=== PATIENT | female | born 1975 | race Caucasian/White ===

== ENCOUNTER 2018-03-01 18:51 | Emergency (ER) | payer SELFPAY ==
[2018-03-01] MEDS ORDERED: SUBLIMAZE IV ONE ×2 (19:14→19:58)
[2018-03-01] MEDS ORDERED: ZOFRAN IV ONE (19:14)
[2018-03-01] MEDS ORDERED: LACTATED RINGERS 1,000 ML IV ONE (19:15)
[2018-03-01] MEDS ORDERED: BOOSTRIX IM ONE (19:15)
[2018-03-01] MEDS ORDERED: THERMAZENE 50 GRAM TP ONE (19:22)
[2018-03-01] MEDS ORDERED: ANTIBIOTIC OINT TP ONE (19:40)
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
[2018-03-01] MEDS ORDERED: TORADOL IV ONE (19:58)
[2018-03-01 22:15] VITALS: BP 166/98
== END 2018-03-01 20:48 | disposition home or self-care (01) ==
LOC: ED 18:51
DX: T20.27XA Burn of second degree of neck, initial encounter (principal); T22.251A Burn of second degree of right shoulder, initial encounter; T20.211A Burn of second degree of right ear [any part, except ear drum], initial encounter; E11.9 Type 2 diabetes mellitus without complications; F17.200 Nicotine dependence, unspecified, uncomplicated; X17.XXXA Contact with hot engines, machinery and tools, initial encounter; Y93.89 Activity, other specified; Y92.89 Other specified places as the place of occurrence of the external cause; Y99.8 Other external cause status
CPT/HCPCS: 16025; 82962; 90471; 90715; 96374; 96375; 96376; 99283; J1885; J2405; J3010; J7120

== ENCOUNTER 2018-04-08 00:01 | Emergency (ER) | payer SELFPAY ==
[2018-04-08 02:55] LABS: Basophils # (Auto) 0.1 K/mm3 (0.0-0.1); Basophils % (Auto) 0.9 % (0.0-1.8); Eosinophils # (Auto) 0.5 K/mm3 (0.0-0.4); Eosinophils % (Auto) 4.6 % (0.0-4.3); Hematocrit 48.6 % (30.3-42.9); Hemoglobin 16.6 gm/dl (10.1-14.3); Lymphocytes # (Auto) 3.7 K/mm3 (1.2-5.4); Lymphocytes % (Auto) 37.6 % (13.4-35.0); Mean Corpuscular HGB Conc 34 % (30-34); Mean Corpuscular Hemoglobin 31 pg (28-32); Mean Corpuscular Volume 90 fl (79-97); Monocytes # (Auto) 0.7 K/mm3 (0.0-0.8); Monocytes % (Auto) 6.9 % (0.0-7.3); Platelet Count 185 K/mm3 (140-440); Red Blood Count 5.42 M/mm3 (3.65-5.03); Red Cell Distribution Width 13.8 % (13.2-15.2)
[2018-04-08 03:16] LABS: Alanine Aminotransferase 32 units/L (7-56); Albumin 3.6 g/dL (3.9-5); BUN/Creatinine Ratio 30; Blood Urea Nitrogen 18 mg/dL (7-17); Calcium 8.9 mg/dL (8.4-10.2); Hemolysis Index 4
--- NOTE | 2018-04-08 04:11 | Cat Scan Report ---
FINAL REPORT EXAM: CT HEAD/BRAIN WO CON HISTORY: Right Head Pressure TECHNIQUE: Routine axial imaging was obtained of the brain without IV contrast. FINDINGS: The ventricular system is appropriate in size and is symmetric. There is no evidence of acute stroke or hemorrhage. There are no extra-axial fluid collections. The visualized sinuses are clear. The mastoid air cells are well pneumatized. The calvarium appears intact. IMPRESSION: Within normal limits.
[2018-04-08 06:37] VITALS: BP 128/68
--- NOTE | 2018-04-08 09:30 | Emergency Department Report ---
Blank Doc - Documentation Documentation: I went to see this patient and patient was no longer in the room. Laboratory studies have been reviewed. Patient is left without being seen.
== END 2018-04-08 10:00 | disposition left against medical advice (07) ==
LOC: ED 00:01
DX: R20.0 Anesthesia of skin (principal); Z53.21 Procedure and treatment not carried out due to patient leaving prior to being seen by health care provider
CPT/HCPCS: 36415; 70450; 80053; 84703; 85025; 93005; 93010

== ENCOUNTER 2020-03-18 03:15 | Inpatient (IN) | payer OTHER, SELFPAY ==
--- NOTE | 2020-03-18 03:41 | Emergency Department Report ---
ED CPR HPI - General Chief Complaint: Cardiac Arrest/CPR Stated Complaint: CARDIAC ARREST Time Seen by Provider: 03/18/20 03:24 Source: EMS Mode of arrival: Stretcher Limitations: Physical Limitation - History of Present Illness Initial Comments: 44-year-old female, unknown medical history, presents to the ED via EMS. Medics states they were called out for shortness of breath, however upon arrival, patient was unresponsive, pulseless, and apneic. ACLS was initiated. Patient was PEA on the monitor initially. Patient was given a total of epinephrine x2 and defibrillation x1. Regained pulse just prior to ED arrival. Complaint: found unresponsive Place: home Bystander CPR Performed: No Shock Advised: Yes Number of Shocks Delivered: 1 Initial Findings in the Field: unresponsive, no respirations, no pulse, PEA ROSC in the Field: Yes Associated Symptoms: shortness of breath Treatments Prior to Arrival: intubation, chest compressions, defribrillated shocks # (1), epinephrine mgs # (2) - Related Data Previous Rx's Medication Instructions Recorded Last Taken Type Bacitracin 1 applic .ROUTE BID #3.5 oint...g. 03/01/18 Unknown Rx Ibuprofen [Motrin 800 MG tab] 800 mg PO Q8HR PRN #20 tablet 03/01/18 Unknown Rx Silver Sulfadiazine [Silvadene] 1 applic TP BID #1000 cream..g. 03/01/18 Unknown Rx oxyCODONE /ACETAMINOPHEN [Percocet 1 - 2 tab PO Q6HR PRN #20 tablet 03/01/18 Unknown Rx 5/325] Allergies Allergy/AdvReac Type Severity Reaction Status Date / Time No Known Allergies Allergy Verified 03/01/18 19:35 ED Review of Systems ROS: Stated complaint: CARDIAC ARREST Other details as noted in HPI Comment: Unobtainable due to pts medical conditions ED Past Medical Hx - Past Medical History Previous Medical History?: Yes Hx Hypertension: Yes Hx CVA: Yes Hx Diabetes: Yes - Surgical History Past Surgical History?: Yes Hx Cholecystectomy: Yes Hx Appendectomy: Yes - Social History Smoking Status: Current Every Day Smoker Substance Use Type: None - Medications Home Medications: Home Medications Medication Instructions Recorded Confirmed Last Taken Type Bacitracin 1 applic .ROUTE BID #3.5 oint...g. 03/01/18 Unknown Rx Ibuprofen [Motrin 800 MG tab] 800 mg PO Q8HR PRN #20 tablet 03/01/18 Unknown Rx Silver Sulfadiazine [Silvadene] 1 applic TP BID #1000 cream..g. 03/01/18 Unknown Rx oxyCODONE /ACETAMINOPHEN [Percocet 1 - 2 tab PO Q6HR PRN #20 tablet 03/01/18 Unknown Rx 5/325] ED Physical Exam - General Limitations: Physical Limitation - Head Head exam: Present: atraumatic, normocephalic - Eye Eye exam: Present: normal appearance - ENT ENT exam: Present: other (ET tube in place) - Neck Neck exam: Present: normal inspection - Respiratory Respiratory exam: Present: rhonchi - Cardiovascular Cardiovascular Exam: Present: normal rhythm, tachycardia - GI/Abdominal GI/Abdominal exam: Present: soft. Absent: distended - Extremities Exam Extremities exam: Present: normal inspection. Absent: pedal edema - Neurological Exam Neurological exam: Present: other (GCS=3) - Skin Skin exam: Present: warm, dry, intact, normal color ED Course Vital Signs 03/18/20 03/18/20 03/18/20 03:18 03:30 03:53 Temperature Pulse Rate 152 H 142 H 137 H Respiratory 23 22 25 H Rate Blood Pressure 160/114 O2 Sat by Pulse 66 L 100 93 Oximetry 03/18/20 03/18/20 03/18/20 04:00 04:16 04:18 Temperature Pulse Rate 135 H 128 H 125 H Respiratory 27 H 29 H Rate Blood Pressure 129/96 148/106 129/96 O2 Sat by Pulse 87 95 96 Oximetry 03/18/20 03/18/20 03/18/20 04:27 04:30 04:46 Temperature 97.0 F L Pulse Rate 122 H 120 H Respiratory 32 H 34 H Rate Blood Pressure 129/96 129/96 O2 Sat by Pulse 96 98 Oximetry 03/18/20 03/18/20 03/18/20 05:00 05:46 06:00 Temperature Pulse Rate 117 H Respiratory 36 H 36 H Rate Blood Pressure 150/70 150/70 150/70 O2 Sat by Pulse 99 87 93 Oximetry 03/18/20 03/18/20 03/18/20 06:16 06:30 06:46 Temperature Pulse Rate Respiratory 40 H 41 H 36 H Rate Blood Pressure 150/70 173/102 173/102 O2 Sat by Pulse 94 94 98 Oximetry 03/18/20 03/18/20 03/18/20 07:00 07:16 07:30 Temperature Pulse Rate Respiratory 34 H 39 H 41 H Rate Blood Pressure 173/102 173/102 173/102 O2 Sat by Pulse 92 94 96 Oximetry 03/18/20 03/18/20 03/18/20 07:46 08:00 08:15 Temperature Pulse Rate Respiratory 43 H 38 H 32 H Rate Blood Pressure 155/20 155/20 O2 Sat by Pulse 98 96 95 Oximetry 03/18/20 03/18/20 03/18/20 08:20 08:31 08:45 Temperature Pulse Rate 128 H 135 H 131 H Respiratory 29 H 29 H Rate Blood Pressure 130/84 155/20 155/20 O2 Sat by Pulse 93 91 90 Oximetry 03/18/20 03/18/20 03/18/20 09:01 10:01 10:21 Temperature Pulse Rate 130 H 130 H 130 H Respiratory 30 H 33 H 33 H Rate Blood Pressure 130/84 130/84 130/84 O2 Sat by Pulse 90 92 92 Oximetry 03/18/20 03/18/20 03/18/20 10:30 10:41 10:51 Temperature Pulse Rate 132 H 131 H 130 H Respiratory 33 H 34 H 33 H Rate Blood Pressure 133/49 133/49 133/49 O2 Sat by Pulse 94 94 95 Oximetry 03/18/20 03/18/20 11:52 11:58 Temperature Pulse Rate 133 H 130 H Respiratory 36 H Rate Blood Pressure O2 Sat by Pulse 199 H Oximetry - Reevaluation(s) Reevaluation #1: 03/18/20 03:25 Sats initially in the 70s. Absence of breath sounds on the left. Pt w/ right main stem intubation in the field, so tube withdrawn until equal breath sounds bilaterally. CXR pending. Reevaluation #2: 03/18/20 05:58 Spoke w/ pt's father over the phone via clinical manager (Osmin Yu [phone]). States pt had a cardiac cath 10 days ago at [facility] for blocked arteries and possibly had stent placed. Unknown if pt had COVID test or symptoms. - Consultations Consultation #1: 03/18/20 07:58 Spoke w/ Dr Angel. Recommends lovenox for now and will attempt to obtain records from [facility]. ED Medical Decision Making - Lab Data Result diagrams: 03/18/20 03:35 03/18/20 14:09 - EKG Data -: EKG Interpreted by Me EKG shows normal: sinus rhythm Rate: tachycardia (rate 148) - Radiology Data Radiology results: report reviewed, image reviewed - Medical Decision Making 44 yo F s/p cardiac arrest at home. Initial EMS call for shortness of breath. Pt was intubated in the field, right main stem intubation by EMS. ET tube was readjusted once she arrived in the ED. Upon ED arrival pt had regained pulses. BP stable, pt tachycardic, afebrile. COVID status unknown. Father states pt had cardiac cath 10 days ago. Unknown if stent was placed at that time. Pt currently w/ elevated WBCs, elevated ymphocytes, bilateral pneumonia and right pleural effusion on CT. Sepsis protocol initiated, cultures drawn, IV fluids and abx given. Renal function ok at this time. Troponin elevated 0.4. EKG shows sinus tach w/ diffuse depressions. Lovenox given. No PE on CT. Initial lactic acid was 11, repeat improved to 6. Cardiology has been consulted, spoke w/ Dr Angel. ID consult and COVID testing has been ordered. Intensive care consult has also been ordered. Pt will be admitted to hospitalist for further management. - Differential Diagnosis PE, CHF, COVID, arrythmia, ACS Critical Care Time: Yes Critical care time in (mins) excluding proc time.: 35 Critical care attestation.: If time is entered above; I have spent that time in minutes in the direct care of this critically ill patient, excluding procedure time. Critical Care Time: 35 min ED Disposition Clinical Impression: Cardiac arrest, Pneumonia, Sepsis, Suspected 2019 novel coronavirus infection, Pleural effusion, NSTEMI (non-ST elevated myocardial infarction) Disposition: DC-09 OP ADMIT IP TO THIS HOSP Is pt being admited?: Yes Condition: Undetermined Time of Disposition: 07:39
[2020-03-18 04:03] LABS: Mean Corpuscular HGB Conc 31 % (30-34); Mean Corpuscular Volume 97 fl (79-97); Platelet Count 344 K/mm3 (140-440); Red Blood Count 5.09 M/mm3 (3.65-5.03); Red Cell Distribution Width 14.3 % (13.2-15.2)
--- NOTE | 2020-03-18 04:08 | XRay Report ---
CHEST 1 VIEW 03/18/2020 3:24 AM INDICATION / CLINICAL INFORMATION: cardiac arrest, intubated, sob. COMPARISON: None available. FINDINGS: SUPPORT DEVICES: ET tube has tip 6 cm above daria. NG tube courses below body of stomach. HEART / MEDIASTINUM: No significant abnormality. LUNGS / PLEURA: Dense airspace consolidation throughout the right mid to lower lung field. Multifocal mild patchy parenchymal disease left lung characteristic for bronchopneumonia. No pneumothorax. ADDITIONAL FINDINGS: No significant additional findings. IMPRESSION: 1. Bilateral bronchopneumonia, right greater than left. Signer Name: John Gan MD Signed: 03/18/2020 4:04 AM Workstation Name: [id number]
[2020-03-18] MEDS ORDERED: CEFEPIME/NS 1 GM/100 ML 1 GM/100 ML BAG IV ONE (04:11)
[2020-03-18 04:15] LABS: Hematocrit 49.3 % (30.3-42.9); Hemoglobin 15.4 gm/dl (10.1-14.3); INR 1.31 (0.87-1.13)
[2020-03-18 04:16] LABS: Partial Thromboplastin Time 40.2 Sec. (24.2-36.6)
[2020-03-18 04:21] LABS: Alanine Aminotransferase 75 units/L (7-56); Albumin 2.8 g/dL (3.9-5); BUN/Creatinine Ratio 24; Blood Urea Nitrogen 26 mg/dL (7-17); Calcium 8.9 mg/dL (8.4-10.2); Hemolysis Index 21
[2020-03-18 04:22] LABS: Bilirubin,Direct < 0.2 mg/dL (0-0.2)
[2020-03-18] MEDS ORDERED: SODIUM CHLORIDE 0.9% 1000 ML IV SOLN IV ONE (04:47)
[2020-03-18] MEDS ORDERED: VANCOMYCIN 1,750 MG in SODIUM CHLORIDE 0.9% 500 ML 500 ML IV ONE (05:00)
--- NOTE | 2020-03-18 06:02 | Cat Scan Report ---
CTA CHEST WITH IV CONTRAST INDICATION: MAIN: cardiac arrest, sob, 100cc omn i350. TECHNIQUE: Axial CT images were obtained through the chest after injection of 100 cc Omnipaque 350 IV contrast. 3 plane MIP reconstructions were produced. All CT scans at this location are performed using CT dose reduction for ALARA by means of automated exposure control. COMPARISON: None available. FINDINGS: PULMONARY ARTERIES: No pulmonary emboli. THORACIC AORTA: No acute abnormality. HEART: Normal. CORONARY ARTERIES: No significant calcification. PLEURA: Moderate right pleural effusion No pneumothorax. LYMPH NODES: No significant adenopathy. LUNGS: Dense airspace consolidation both lower lobes characteristic for bronchopneumonia with patchy infiltrate seen within both upper lobes. ADDITIONAL FINDINGS: Endotracheal and nasogastric tubes are noted in expected position UPPER ABDOMEN: No acute findings. Gallbladder surgically absent. SKELETAL STRUCTURES: No significant osseous abnormality. IMPRESSION: 1. No CT evidence for pulmonary embolism. 2. Bilateral lower lobe bronchopneumonia and moderate right pleural effusion. Signer Name: John Gan MD Signed: 03/18/2020 5:58 AM Workstation Name: [id number]
--- NOTE | 2020-03-18 06:03 | Cat Scan Report ---
CT HEAD WITHOUT CONTRAST INDICATION / CLINICAL INFORMATION: MAIN: cardiac arrest, pt intubated, best possible images 2nd attempt. TECHNIQUE: All CT scans at this location are performed using CT dose reduction for ALARA by means of automated e xposure control. COMPARISON: None available. FINDINGS: HEMORRHAGE: None. EXTRA-AXIAL SPACES: Normal in size and morphology for the patient's age. VENTRICULAR SYSTEM: Normal in size and morphology for the patient's age. CEREBRAL PARENCHYMA: No significant abnormality. No acute territorial infarct. MIDLINE SHIFT OR HERNIATION: None. CEREBELLUM / BRAINSTEM: No significant abnormality. ORBITS: Normal as visualized. SOFT TISSUES of HEAD: No significant abnormality. CALVARIUM: No significant abnormality. PARANASAL SINUSES / MASTOID AIR CELLS: Normal as visualized. ADDITIONAL FINDINGS: None. IMPRESSION: 1. No acute intracranial abnormality. Signer Name: John Gan MD Signed: 03/18/2020 5:59 AM Workstation Name: [id number]
[2020-03-18 06:39] LABS: ABG Base Excess -8.7 mmol/L (-2.0-3.0); ABG HCO3 17.6 mmol/L (20.0-26.0); ABG Methemoglobin 0.2 % (0.0-1.5); ABG Oxygen Saturation 92.2 % (95.0-99.0); ABG PCO2 39.4 mm Hg; ABG PH 7.269 pH Units (7.350-7.450); ABG PO2 63.3 mm Hg (80.0-90.0)
[2020-03-18 06:39] LABS: Anisocytosis 1+; Band Neutrophils # (Manual) 0.1 K/mm3; Basophils % (Manual) 0 % (0.0-1.8); Eosinophils % (Manual) 5.5 % (0.0-4.3); Monocytes % (Manual) 5.5 % (0.0-7.3); Total Cells Counted 200
[2020-03-18 06:41] LABS: Platelet Estimate Consistent w Auto
[2020-03-18] MEDS ORDERED: HEPARIN 10,000 UNITS/10 ML VIAL IV ONE (07:40)
[2020-03-18] MEDS ORDERED: ENOXAPARIN 100 MG/1 ML INJ SUB-Q ONE (07:58)
[2020-03-18 08:00] LABS: C-Reactive Protein 0.6 mg/dL (0.00-1.30)
[2020-03-18] MEDS ORDERED: INSULIN REGULAR, HUMAN 100 UNITS/1 ML SUB-Q SCH (08:00)
[2020-03-18] MEDS ORDERED: HEPARIN/ 0.45% NACL DRIP 25,000 UNIT/500 ML BAG IV SCH (08:00)
--- NOTE | 2020-03-18 08:34 | History and Physical Report ---
History of Present Illness Date of examination: 03/18/20 Date of admission: 03/18/20 Chief complaint: unresponsiveness with cardiac arrest History of present illness: 44-year-old female, with h/o CAD recent cath 2 weeks ago at , CHF unknown EF, HTN, HLD, DM, hypothyroidism presents to the ED via EMS following a cardiac arrest at home. Medics states they were called out for shortness of breath, however upon arrival, patient was unresponsive, pulseless, and apneic. ACLS was initiated, Patient was PEA on the monitor initially. Patient was given a total of epinephrine x2 and defibrillation x1. Regained pulse just prior to ED arrival. Patient is currently unresponsive, on the vent in the emergency room, in a sinus rhythm. The ECG currently is mild sinus tachycardia, with nonspecific ST abnormalities associated with the incomplete left bundle. The chest x-ray is abnormal with cardiomegaly, CTA chest with bilateral interstitial infiltrates right greater than left. The WBC was 28,000, troponin was 0.4, glucose 463. She is being placed on insulin drip, started on empiric abx and admitted to ICU for further Mx. Review of System: Unobtainable due to altered mental status and patient is intubated Past History Past Medical History: CAD, diabetes, heart failure (EF unknown), hypertension, hyperlipidemia, hypothyroidism Past Surgical History: Other (cardiac cath) Social history: other (unobtainable) Family history: other (unobtainable) Medications and Allergies Allergies Allergy/AdvReac Type Severity Reaction Status Date / Time No Known Allergies Allergy Verified 03/01/18 19:35 Home Medications Medication Instructions Recorded Confirmed Last Taken Type Bacitracin 1 applic .ROUTE BID #3.5 oint...g. 03/01/18 Unknown Rx Ibuprofen [Motrin 800 MG tab] 800 mg PO Q8HR PRN #20 tablet 03/01/18 Unknown Rx Silver Sulfadiazine [Silvadene] 1 applic TP BID #1000 cream..g. 03/01/18 Unknown Rx oxyCODONE /ACETAMINOPHEN [Percocet 1 - 2 tab PO Q6HR PRN #20 tablet 03/01/18 Unknown Rx 5/325] Active Meds: Active Medications Propofol (Diprivan 10 Mg/Ml) 1,000 mg in 100 mls @ 2.722 mls/hr IV TITR ANTHONY; Protocol Last Admin: 03/18/20 04:35 Dose: 5 mcg/kg/min, 2.722 mls/hr Documented by: Exam - Physical Exam Narrative exam: General appearance: other (Unresponsive, on the vent) HEENT: pupil sluggishly rective, dilated Neck: Positive: neck supple Cardiac: Positive: Reg Rate and Rhythm Lungs: Positive: Decreased Breath Sounds b/l Neuro: Positive: Other (Unresponsive, on the vent) Abdomen: Positive: Soft Female genitourinary: deferred Skin: Positive: Clear Extremities: Absent: edema - Constitutional Vitals: Temp Pulse Resp BP Pulse Ox 97.0 F L 117 H 34 H 173/102 92 03/18/20 04:27 03/18/20 05:00 03/18/20 07:00 03/18/20 07:00 03/18/20 07:00 HEART Score - HEART Score Troponin: Troponin T 0.423 ng/mL (0.00-0.029) H* 03/18/20 06:38 Results - Labs CBC & Chem 7: 03/18/20 03:35 03/18/20 14:09 Labs: Abnormal lab results 03/18/20 03/18/20 03/18/20 Range/Units 03:35 03:35 03:35 WBC 28.2 H (4.5-11.0) K/mm3 RBC 5.09 H (3.65-5.03) M/mm3 Hgb 15.4 H (10.1-14.3) gm/dl Hct 49.3 H (30.3-42.9) % Lymphocytes % (Manual) 41.5 H (13.4-35.0) % Eosinophils % (Manual) 5.5 H (0.0-4.3) % Seg Neutrophils # Man 13.3 H (1.8-7.7) K/mm3 Lymphocytes # (Manual) 11.7 H (1.2-5.4) K/mm3 Monocytes # (Manual) 1.6 H (0.0-0.8) K/mm3 Eosinophils # (Manual) 1.6 H (0.0-0.4) K/mm3 PT 16.0 H (12.2-14.9) Sec. INR 1.31 H (0.87-1.13) APTT 40.2 H (24.2-36.6) Sec. D-Dimer (0-234) ng/mlDDU ABG pH (7.350-7.450) pH Units ABG pO2 (80.0-90.0) mm Hg ABG HCO3 (20.0-26.0) mmol/L ABG O2 Saturation (95.0-99.0) % ABG Base Excess (-2.0-3.0) mmol/L Oxyhemoglobin (95.0-99.0) % Sodium 136 L (137-145) mmol/L Potassium 3.4 L (3.6-5.0) mmol/L Chloride 95.1 L (98-107) mmol/L Carbon Dioxide 12 L (22-30) mmol/L BUN 26 H (7-17) mg/dL Glucose 463 H (65-100) mg/dL Lactic Acid (0.7-2.0) mmol/L Ferritin (13.0-400.0) ng/mL AST 106 H (5-40) units/L ALT 75 H (7-56) units/L Lactate Dehydrogenase (91-180) units/L Troponin T (0.00-0.029) ng/mL NT-Pro-B Natriuret Pep (0-450) pg/mL Albumin 2.8 L (3.9-5) g/dL 03/18/20 03/18/20 03/18/20 Range/Units 03:35 03:35 04:59 WBC (4.5-11.0) K/mm3 RBC (3.65-5.03) M/mm3 Hgb (10.1-14.3) gm/dl Hct (30.3-42.9) % Lymphocytes % (Manual) (13.4-35.0) % Eosinophils % (Manual) (0.0-4.3) % Seg Neutrophils # Man (1.8-7.7) K/mm3 Lymphocytes # (Manual) (1.2-5.4) K/mm3 Monocytes # (Manual) (0.0-0.8) K/mm3 Eosinophils # (Manual) (0.0-0.4) K/mm3 PT (12.2-14.9) Sec. INR (0.87-1.13) APTT (24.2-36.6) Sec. D-Dimer (0-234) ng/mlDDU ABG pH (7.350-7.450) pH Units ABG pO2 (80.0-90.0) mm Hg ABG HCO3 (20.0-26.0) mmol/L ABG O2 Saturation (95.0-99.0) % ABG Base Excess (-2.0-3.0) mmol/L Oxyhemoglobin (95.0-99.0) % Sodium (137-145) mmol/L Potassium (3.6-5.0) mmol/L Chloride (98-107) mmol/L Carbon Dioxide (22-30) mmol/L BUN (7-17) mg/dL Glucose (65-100) mg/dL Lactic Acid 11.80 H* 6.20 H* (0.7-2.0) mmol/L Ferritin (13.0-400.0) ng/mL AST (5-40) units/L ALT (7-56) units/L Lactate Dehydrogenase (91-180) units/L Troponin T 0.416 H* (0.00-0.029) ng/mL NT-Pro-B Natriuret Pep 6624 H (0-450) pg/mL Albumin (3.9-5) g/dL 03/18/20 03/18/20 03/18/20 Range/Units 06:25 06:38 06:38 WBC (4.5-11.0) K/mm3 RBC (3.65-5.03) M/mm3 Hgb (10.1-14.3) gm/dl Hct (30.3-42.9) % Lymphocytes % (Manual) (13.4-35.0) % Eosinophils % (Manual) (0.0-4.3) % Seg Neutrophils # Man (1.8-7.7) K/mm3 Lymphocytes # (Manual) (1.2-5.4) K/mm3 Monocytes # (Manual) (0.0-0.8) K/mm3 Eosinophils # (Manual) (0.0-0.4) K/mm3 PT (12.2-14.9) Sec. INR (0.87-1.13) APTT (24.2-36.6) Sec. D-Dimer 9263.83 H (0-234) ng/mlDDU ABG pH 7.269 L (7.350-7.450) pH Units ABG pO2 63.3 L (80.0-90.0) mm Hg ABG HCO3 17.6 L (20.0-26.0) mmol/L ABG O2 Saturation 92.2 L (95.0-99.0) % ABG Base Excess -8.7 L (-2.0-3.0) mmol/L Oxyhemoglobin 90.4 L (95.0-99.0) % Sodium (137-145) mmol/L Potassium (3.6-5.0) mmol/L Chloride (98-107) mmol/L Carbon Dioxide (22-30) mmol/L BUN (7-17) mg/dL Glucose (65-100) mg/dL Lactic Acid 5.00 H* (0.7-2.0) mmol/L Ferritin (13.0-400.0) ng/mL AST (5-40) units/L ALT (7-56) units/L Lactate Dehydrogenase (91-180) units/L Troponin T (0.00-0.029) ng/mL NT-Pro-B Natriuret Pep (0-450) pg/mL Albumin (3.9-5) g/dL 03/18/20 03/18/20 03/18/20 Range/Units 06:38 06:38 06:38 WBC (4.5-11.0) K/mm3 RBC (3.65-5.03) M/mm3 Hgb (10.1-14.3) gm/dl Hct (30.3-42.9) % Lymphocytes % (Manual) (13.4-35.0) % Eosinophils % (Manual) (0.0-4.3) % Seg Neutrophils # Man (1.8-7.7) K/mm3 Lymphocytes # (Manual) (1.2-5.4) K/mm3 Monocytes # (Manual) (0.0-0.8) K/mm3 Eosinophils # (Manual) (0.0-0.4) K/mm3 PT (12.2-14.9) Sec. INR (0.87-1.13) APTT (24.2-36.6) Sec. D-Dimer (0-234) ng/mlDDU ABG pH (7.350-7.450) pH Units ABG pO2 (80.0-90.0) mm Hg ABG HCO3 (20.0-26.0) mmol/L ABG O2 Saturation (95.0-99.0) % ABG Base Excess (-2.0-3.0) mmol/L Oxyhemoglobin (95.0-99.0) % Sodium (137-145) mmol/L Potassium (3.6-5.0) mmol/L Chloride (98-107) mmol/L Carbon Dioxide (22-30) mmol/L BUN (7-17) mg/dL Glucose 411 H (65-100) mg/dL Lactic Acid (0.7-2.0) mmol/L Ferritin 959.9 H (13.0-400.0) ng/mL AST (5-40) units/L ALT (7-56) units/L Lactate Dehydrogenase 572 H (91-180) units/L Troponin T 0.423 H* (0.00-0.029) ng/mL NT-Pro-B Natriuret Pep (0-450) pg/mL Albumin (3.9-5) g/dL Assessment and Plan Status post cardiac arrest on spot -Likely due to severe sepsis and acute respiratory failure, patient also has a recent history of stent placement at [facility] only 10 days ago prior to this admission - Patient was given a total of epinephrine x2 and defibrillation x1. Regained pulse just prior to ED arrival. -We will continue to monitor cardiac enzyme, consulted cardiology Acute respiratory failure -Likely due to bilateral pneumonia vs pulmonary edema -- We'll admit the patient to intensive care unit - Will provide scheduled nebulizer breathing treatment and consult critical care - Place on empiric IV antibiotic, iv lasix - will get sputum culture, chest x-ray and CTA chest showed bilateral pneumonia - Provide supplemental oxygen to keep oxygen saturation above 92% DKA -placed on DKA protocol - We'll continue insulin drip and monitor blood glucose every hour - We will continue IV fluid hydration with normal saline - Will change to D5 normal saline once blood glucose reaches below 250 - We'll repeat BMP every 6 hours till anion gap closes - We will replace potassium and magnesium as needed - We'll keep the patient nothing by mouth for now, will place on ADA diet/TF when anion gap closes Acute metabolic encephalopathy -Likely due to severe sepsis and DKA -CT head without any acute abnormality, but cannot rule out any possibility for anoxic brain injury as patient is status post PEA cardiac arrest -We will continue to monitor clinically, frequent neuro exam Severe sepsis with bilateral pneumonia -Manifested with white count of greater than 28,000, lactic acid greater than 11, bilateral infiltrates in chest x-ray and CTA chest, pH 7.26, tachycardia and tachypnea -We will rule out COVID-19 -test has been ordered -Continue IV antibiotic with cefepime and vancomycin -Ordered blood culture and sputum culture -Consulted ID, will follow recommendation Severe metabolic acidosis -Likely due to severe sepsis and DKA -Continue IV antibiotic and started on insulin drip -Continue IV fluid with gentle rate and treat underlying cause Coronary artery disease with history of recent stent placement -We will obtain home medications and get medical records from an outside hospital -Consulted cardiology for further recommendation -We will continue aspirin and beta-queta with NG/OGT tube h/o CHF, EF unknown, will get limited 2d eco Right pleural effusion - order for thoracentesis, will also order 2d echo Hypertension, accelerated/uncontrolled - We will place on nicotine patch and labetalol IV as needed, monitor BP Hypothyroidism, check TSH - Provide DVT prophylaxis with Lovenox. The high probability of a clinically significant, sudden or life threatening deterioration of the [[employer], [employer], respiratory, metabolic/endocrine] system(s) required my full and direct attention, intervention and personal management. The aggregate critical care time was [64] minutes. This time is in addition to time spent performing reported procedures but includes the following: [x] Data Review and interpretation [x] Patient assessment and monitoring of vital signs [x] Documentation [x] Medication orders and management
[2020-03-18] MEDS ORDERED: SODIUM CHLORIDE 0.9% 1000 ML 1,000 ML IV SCH (08:45)
[2020-03-18 08:50] LABS: Chol/HDL Ratio 5.06 %
[2020-03-18] MEDS ORDERED: VANCOMYCIN/NS 1 GM/250 ML 1 GM/250 ML BAG IV SCH (09:00)
[2020-03-18] MEDS ORDERED: cloNIDine TTS 0.2 MG/24 HR PATCH TD SCH (10:00)
[2020-03-18] MEDS ORDERED: VANCOMYCIN 1,500 MG in SODIUM CHLORIDE 0.9% 500 ML 500 ML IV SCH (10:00)
[2020-03-18] MEDS ORDERED: CEFEPIME/NS 2 GM/100 ML 2 GM/100 ML BAG IV SCH (10:00)
[2020-03-18] MEDS ORDERED: DEXTROSE 50% IN WATER (25GM) 50 ML SYRINGE IV PRN (10:26)
[2020-03-18] MEDS ORDERED: INSULIN REGULAR, HUMAN 100 UNITS in SODIUM CHLORIDE 0.9% 99 ML IV SCH (11:00)
--- NOTE | 2020-03-18 11:38 | Consultation ---
History of Present Illness Consult date: 03/18/20 Consult reason: other (Respiratory failure) History of present illness: The patient is a 44-year-old woman who presented to the hospital with shortness of breath and acute respiratory failure, underwent ACLS protocol in the field. During ACLS resuscitation, she was administered with epinephrine and reported during resuscitation to require a single defibrillation for ventricular fibrillation. Ventricular fibrillation was not reported as the primary or initial cardiac rhythm. Patient is currently unresponsive, on the vent in the emergency room, in a sinus rhythm. The ECG currently is mild sinus tachycardia, with a nonspecific ventricular conduction delay and nonspecific ST abnormalities associated with the incomplete left bundle. The chest x-ray is abnormal. There is a moderate severity cardiomegaly, with bilateral interstitial infiltrates right greater than left. The pattern of the pulmonary vascularity may suggest pulmonary edema or heart failure, but bilateral pneumonia is in the differential diagnosis. The WBC was 28,000, troponin was 0.4, glucose 463. The patient is reported to have a history of coronary artery disease and also reportedly had a recent cardiac catheterization at [facility], the details of this and not available at this time for review. Past History Past Medical History: CAD Medications and Allergies Allergies Allergy/AdvReac Type Severity Reaction Status Date / Time No Known Allergies Allergy Verified 03/01/18 19:35 Home Medications Medication Instructions Recorded Confirmed Last Taken Type Bacitracin 1 applic .ROUTE BID #3.5 oint...g. 03/01/18 Unknown Rx Ibuprofen [Motrin 800 MG tab] 800 mg PO Q8HR PRN #20 tablet 03/01/18 Unknown Rx Silver Sulfadiazine [Silvadene] 1 applic TP BID #1000 cream..g. 03/01/18 Unknown Rx oxyCODONE /ACETAMINOPHEN [Percocet 1 - 2 tab PO Q6HR PRN #20 tablet 03/01/18 Unknown Rx 5/325] Active Meds: Active Medications Clonidine HCl (Catapres-Tts Patch) 0.2 mg TD Whalen@1000 ANTHONY Last Admin: 03/18/20 11:28 Dose: 0.2 mg Documented by: Dextrose (D50w (25gm) Syringe) 0 ml IV Q30MIN PRN; Protocol PRN Reason: Hypoglycemia Propofol (Diprivan 10 Mg/Ml) 1,000 mg in 100 mls @ 2.722 mls/hr IV TITR ANTHONY; Protocol Last Admin: 03/18/20 04:35 Dose: 5 mcg/kg/min, 2.722 mls/hr Documented by: Sodium Chloride (Nacl 0.9% 1000 Ml) 1,000 mls @ 100 mls/hr IV DIRECT ANTHONY Cefepime HCl (Cefepime/Ns 2 Gm/100 Ml) 2 gm in 100 mls @ 100 mls/hr IV Q8H ANTHONY Vancomycin HCl 1,500 mg/ (Sodium Chloride) 530 mls @ 333.333 mls/hr IV Q18H ANTHONY Last Admin: 03/18/20 11:26 Dose: 333.333 mls/hr Documented by: Insulin Human Regular 100 (units/ Sodium Chloride) 100 mls @ 1 mls/hr IV TITR ANTHONY; Protocol Labetalol HCl (Labetalol) 10 mg IV Q4H PRN PRN Reason: Hypertension Review of Systems ROS unobtainable: due to endotracheal tube, due to mental status Physical Examination Vital Signs Pulse Resp Pulse Ox 152 H 23 66 L 03/18/20 03:18 03/18/20 03:18 03/18/20 03:18 General appearance: other (Unresponsive, on the vent) HEENT: Positive: PERRL Neck: Positive: neck supple Cardiac: Positive: Reg Rate and Rhythm Lungs: Positive: Decreased Breath Sounds Neuro: Positive: Other (Unresponsive, on the vent) Abdomen: Positive: Soft Female genitourinary: deferred Skin: Positive: Clear Extremities: Absent: edema Results 03/18/20 03:35 03/18/20 06:38 Cardiac Enzymes 03/18/20 03/18/20 Range/Units 03:35 06:38 AST 106 H (5-40) units/L Lactate Dehydrogenase 572 H (91-180) units/L Coagulation 03/18/20 Range/Units 03:35 PT 16.0 H (12.2-14.9) Sec. INR 1.31 H (0.87-1.13) APTT 40.2 H (24.2-36.6) Sec. Lipids 03/18/20 Range/Units 03:35 Triglycerides 212 H (2-149) mg/dL Cholesterol 223 H (50-199) mg/dL HDL Cholesterol 44 (40-59) mg/dL Cholesterol/HDL Ratio 5.06 % CBC 06/14/20 Range/Units 03:35 WBC 28.2 H (4.5-11.0) K/mm3 RBC 5.09 H (3.65-5.03) M/mm3 Hgb 15.4 H (10.1-14.3) gm/dl Hct 49.3 H (30.3-42.9) % Plt Count 344 (140-440) K/mm3 Lymph # [employer] Comprehensive Metabolic Panel 03/18/20 03/18/20 Range/Units 03:35 06:38 Sodium 136 L (137-145) mmol/L Potassium 3.4 L (3.6-5.0) mmol/L Chloride 95.1 L (98-107) mmol/L Carbon Dioxide 12 L (22-30) mmol/L BUN 26 H (7-17) mg/dL Creatinine 1.1 (0.7-1.2) mg/dL Glucose 463 H 411 H (65-100) mg/dL Calcium 8.9 (8.4-10.2) mg/dL Direct Bilirubin < 0.2 (0-0.2) mg/dL Indirect Bilirubin 0.0 mg/dL AST 106 H (5-40) units/L ALT 75 H (7-56) units/L Alkaline Phosphatase 119 (35-129) units/L Total Protein 6.5 (6.3-8.2) g/dL Albumin 2.8 L (3.9-5) g/dL EKG interpretations - Telemetry EKG Rhythm: Sinus Tachycardia Assessment and Plan - Patient Problems (1) Cardiopulmonary arrest Current Visit: Yes Status: Acute Plan to address problem: The patient is status post an out of hospital cardiopulmonary arrest. Chest x- ray is abnormal with bilateral infiltrates, suggesting bilateral pulmonary edema versus bilateral pneumonia. In addition to COVID-19 testing and supportive measures, will recommend a trial of intravenous diuretics. An echocardiogram will be ordered for left ventricular function assessment. We will also request urgently the records of her recent cardiac catheterization done at [facility].
[2020-03-18 11:48] LABS: Bilirubin,Urine NEG (Negative); Blood,Urine LG (Negative); Color,Urine Red (Yellow); Hyaline Casts,Urine 95 /LPF; Mucus,Urine FEW /HPF; Urobilinogen,Urine < 2.0 mg/dL (<2.0)
[2020-03-18] MEDS ORDERED: FUROSEMIDE 40 MG/4 ML INJ IV SCH (11:50)
[2020-03-18 11:57] LABS: RBC,Urine > 182.0 /HPF (0.0-6.0); WBC,Urine > 182.0 /HPF (0.0-6.0)
[2020-03-18] MEDS ORDERED: CEFEPIME/NS 1 GM/100 ML 1 GM/100 ML BAG IV SCH (12:00)
[2020-03-18] MEDS ORDERED: NORepinephrine/NS 4 MG-250 ML 4 MG/250 ML BAG IV SCH (13:30)
--- NOTE | 2020-03-18 13:30 | Consultation ---
History of Present Illness Consult date: 03/18/20 Requesting physician: MEEK SAMSON Reason for consult: other (Acute Hypoxemic Respiratory Failure; PUI COVID-19) History of present illness: PULMONARY/CCM CONSULT NOTE (Full dictation # [id number]) Please see dictated notes for full details Past History Past Medical History: CAD Past Surgical History: Other (unobtainable) Social history: other (unobtainable) Family history: other (unobtainable) Medications and Allergies Allergies Allergy/AdvReac Type Severity Reaction Status Date / Time No Known Allergies Allergy Verified 03/01/18 19:35 Home Medications Medication Instructions Recorded Confirmed Last Taken Type Bacitracin 1 applic .ROUTE BID #3.5 oint...g. 03/01/18 Unknown Rx Ibuprofen [Motrin 800 MG tab] 800 mg PO Q8HR PRN #20 tablet 03/01/18 Unknown Rx Silver Sulfadiazine [Silvadene] 1 applic TP BID #1000 cream..g. 03/01/18 Unknown Rx oxyCODONE /ACETAMINOPHEN [Percocet 1 - 2 tab PO Q6HR PRN #20 tablet 03/01/18 Unknown Rx 5/325] Active Meds: Active Medications Clonidine HCl (Catapres-Tts Patch) 0.2 mg TD Whalen@1000 ANTHONY Last Admin: 03/18/20 11:28 Dose: 0.2 mg Documented by: Dextrose (D50w (25gm) Syringe) 0 ml IV Q30MIN PRN; Protocol PRN Reason: Hypoglycemia Furosemide (Lasix) 40 mg IV 0600,1800 ANTHONY Last Admin: 03/18/20 13:06 Dose: 40 mg Documented by: Propofol (Diprivan 10 Mg/Ml) 1,000 mg in 100 mls @ 2.722 mls/hr IV TITR ANTHONY; Protocol Last Titration: 03/18/20 13:15 Dose: 20 mcg/kg/min, 10.886 mls/hr Documented by: Sodium Chloride (Nacl 0.9% 1000 Ml) 1,000 mls @ 50 mls/hr IV DIRECT ANTHONY Cefepime HCl (Cefepime/Ns 2 Gm/100 Ml) 2 gm in 100 mls @ 100 mls/hr IV Q8H ANTHONY Last Admin: 03/18/20 13:07 Dose: 100 mls/hr Documented by: Vancomycin HCl 1,500 mg/ (Sodium Chloride) 530 mls @ 333.333 mls/hr IV Q18H ANTHONY Last Admin: 03/18/20 11:26 Dose: 333.333 mls/hr Documented by: Insulin Human Regular 100 (units/ Sodium Chloride) 100 mls @ 1 mls/hr IV TITR ANTHONY; Protocol Labetalol HCl (Labetalol) 10 mg IV Q4H PRN PRN Reason: Hypertension Physical Examination Vital signs: Vital Signs Pulse Resp Pulse Ox 152 H 23 66 L 03/18/20 03:18 03/18/20 03:18 03/18/20 03:18 Results - Laboratory Findings CBC and BMP: 03/18/20 03:35 03/18/20 06:38 ABG ABG pH 7.269 pH Units (7.350-7.450) L 03/18/20 06:25 ABG pCO2 39.4 mm Hg 03/18/20 06:25 ABG pO2 63.3 mm Hg (80.0-90.0) L 03/18/20 06:25 ABG O2 Saturation 92.2 % (95.0-99.0) L 03/18/20 06:25 PT/INR, D-dimer PT 16.0 Sec. (12.2-14.9) H 03/18/20 03:35 INR 1.31 (0.87-1.13) H 03/18/20 03:35 D-Dimer 9263.83 ng/mlDDU (0-234) H 03/18/20 06:38 Abnormal lab findings: Abnormal Labs 03/18/20 03/18/20 03/18/20 03:35 03:35 03:35 WBC 28.2 H RBC 5.09 H Hgb 15.4 H Hct 49.3 H Lymphocytes % (Manual) 41.5 H Eosinophils % (Manual) 5.5 H Seg Neutrophils # Man 13.3 H Lymphocytes # (Manual) 11.7 H Monocytes # (Manual) 1.6 H Eosinophils # (Manual) 1.6 H PT 16.0 H INR 1.31 H APTT 40.2 H D-Dimer ABG pH ABG pO2 ABG HCO3 ABG O2 Saturation ABG Base Excess Oxyhemoglobin Sodium 136 L Potassium 3.4 L Chloride 95.1 L Carbon Dioxide 12 L BUN 26 H Glucose 463 H Lactic Acid Ferritin AST 106 H ALT 75 H Lactate Dehydrogenase Troponin T NT-Pro-B Natriuret Pep Albumin 2.8 L Triglycerides Cholesterol LDL Cholesterol Direct Ur Specific [place] Urine WBC (Auto) 03/18/20 03/18/20 03/18/20 03:35 03:35 04:59 WBC RBC Hgb Hct Lymphocytes % (Manual) Eosinophils % (Manual) Seg Neutrophils # Man Lymphocytes # (Manual) Monocytes # (Manual) Eosinophils # (Manual) PT INR APTT D-Dimer ABG pH ABG pO2 ABG HCO3 ABG O2 Saturation ABG Base Excess Oxyhemoglobin Sodium Potassium Chloride Carbon Dioxide BUN Glucose Lactic Acid 11.80 H* 6.20 H* Ferritin AST ALT Lactate Dehydrogenase Troponin T 0.416 H* NT-Pro-B Natriuret Pep 6624 H Albumin Triglycerides 212 H Cholesterol 223 H LDL Cholesterol Direct 158 H Ur Specific [place] Urine WBC (Auto) 03/18/20 03/18/20 03/18/20 06:25 06:38 06:38 WBC RBC Hgb Hct Lymphocytes % (Manual) Eosinophils % (Manual) Seg Neutrophils # Man Lymphocytes # (Manual) Monocytes # (Manual) Eosinophils # (Manual) PT INR APTT D-Dimer 9263.83 H ABG pH 7.269 L ABG pO2 63.3 L ABG HCO3 17.6 L ABG O2 Saturation 92.2 L ABG Base Excess -8.7 L Oxyhemoglobin 90.4 L Sodium Potassium Chloride Carbon Dioxide BUN Glucose Lactic Acid 5.00 H* Ferritin AST ALT Lactate Dehydrogenase Troponin T NT-Pro-B Natriuret Pep Albumin Triglycerides Cholesterol LDL Cholesterol Direct Ur Specific [place] Urine WBC (Auto) 03/18/20 03/18/20 03/18/20 06:38 06:38 06:38 WBC RBC Hgb Hct Lymphocytes % (Manual) Eosinophils % (Manual) Seg Neutrophils # Man Lymphocytes # (Manual) Monocytes # (Manual) Eosinophils # (Manual) PT INR APTT D-Dimer ABG pH ABG pO2 ABG HCO3 ABG O2 Saturation ABG Base Excess Oxyhemoglobin Sodium Potassium Chloride Carbon Dioxide BUN Glucose 411 H Lactic Acid Ferritin 959.9 H AST ALT Lactate Dehydrogenase 572 H Troponin T 0.423 H* NT-Pro-B Natriuret Pep Albumin Triglycerides Cholesterol LDL Cholesterol Direct Ur Specific [place] Urine WBC (Auto) 03/18/20 03/18/20 08:32 11:21 WBC RBC Hgb Hct Lymphocytes % (Manual) Eosinophils % (Manual) Seg Neutrophils # Man Lymphocytes # (Manual) Monocytes # (Manual) Eosinophils # (Manual) PT INR APTT D-Dimer ABG pH ABG pO2 ABG HCO3 ABG O2 Saturation ABG Base Excess Oxyhemoglobin Sodium Potassium Chloride Carbon Dioxide BUN Glucose Lactic Acid 6.70 H* Ferritin AST ALT Lactate Dehydrogenase Troponin T NT-Pro-B Natriuret Pep Albumin Triglycerides Cholesterol LDL Cholesterol Direct Ur Specific [place] 1.040 H Urine WBC (Auto) > 182.0 H
[2020-03-18] MEDS ORDERED: SODIUM BICARB 8.4% 50 MEQ/50 ML SYRINGE IV ONE (13:31)
[2020-03-18] MEDS ORDERED: EPINEPHrine 1 MG/10 ML SYRINGE ONE ×2 (13:31→17:14)
[2020-03-18] MEDS ORDERED: NORepinephrine/NS 4 MG-250 ML 4 MG/250 ML BAG IV ONE (13:42)
[2020-03-18 13:51] LABS: ABG Base Excess -15.3 mmol/L (-2.0-3.0); ABG HCO3 13.7 mmol/L (20.0-26.0); ABG Methemoglobin 0.9 % (0.0-1.5); ABG Oxygen Saturation 35.4 % (95.0-99.0); ABG PCO2 43.2 mm Hg
[2020-03-18 13:54] LABS: ABG PH 7.118 pH Units (7.350-7.450); ABG PO2 22.6 mm Hg (80.0-90.0)
[2020-03-18] MEDS ORDERED: MINERAL OIL/PETROLATUM, WHITE OPHTH OINT 3.5 GM OU PRN (14:17)
[2020-03-18] MEDS ORDERED: fentaNYL 100 MCG/2 ML INJ IV PRN (14:17)
[2020-03-18] MEDS ORDERED: LIP THERAPY VASELINE TP PRN (14:17)
--- NOTE | 2020-03-18 14:30 | XRay Report ---
CHEST - 1 VIEW INDICATION: post code blue COMPARISON: Earlier today FINDINGS: SUPPORT DEVICES: Stable support device positioning. HEART: Stable cardiomediastinal silhouette. LUNGS/PLEURA: Patchy multifocal airspace disease greatest in the left upper lobe and the right lung base. Findings are largely unchanged. ADDITIONAL FINDINGS: None. IMPRESSION: Unchanged exam. Signer Name: Irving Johns MD Signed: 03/18/2020 2:26 PM Workstation Name: [id number]
[2020-03-18] MEDS ORDERED: SODIUM BICARBONATE 150 MEQ in DEXTROSE 5% IN WATER 1,000 ML IV SCH (15:00)
[2020-03-18] MEDS ORDERED: AZITHROMYCIN 500 MG in SODIUM CHLORIDE 0.9% 250ML 250 ML IV SCH (15:00)
[2020-03-18] MEDS ORDERED: fentaNYL DRIP Premix 2,000 MCG/100 ML BAG IV SCH (15:00)
[2020-03-18] MEDS ORDERED: POTASSIUM CHLORIDE ER 20 MEQ TAB PO ONE (15:15)
--- NOTE | 2020-03-18 15:22 | Event Note ---
Date: 03/18/20 patient coded in the ICU ACLS initiated, placed on levophed ROSC, see code sheet for deatails called her sister and updated CC time- 4o minutes
[2020-03-18 15:25] LABS: ABG HCO3 9.4 mmol/L (20.0-26.0); ABG Methemoglobin 0.2 % (0.0-1.5); ABG Oxygen Saturation 99.1 % (95.0-99.0); ABG PCO2 18.6 mm Hg; ABG PH 7.321 pH Units (7.350-7.450); ABG PO2 175.3 mm Hg (80.0-90.0)
[2020-03-18 15:41] LABS: Calcium 7.8 mg/dL (8.4-10.2)
[2020-03-18] MEDS ORDERED: SODIUM CHLORIDE 0.9% 500 ML 500 ML IV ONE (15:53)
[2020-03-18] MEDS ORDERED: SODIUM CHLORIDE 0.9% 1000 ML 1,000 ML ONE (15:55)
[2020-03-18] MEDS ORDERED: VASOPRESSIN 20 UNIT in SODIUM CHLORIDE 0.9% 100 ML IV SCH (16:00)
[2020-03-18] MEDS ORDERED: SODIUM BICARBONATE 150 MEQ in WATER FOR INJECTION (PF) 1,000 ML IV SCH (17:00)
--- NOTE | 2020-03-18 17:34 | Consultation ---
PULMONARY CRITICAL CARE CONSULTATION NOTE CONSULTING PHYSICIAN: ____ REASON FOR CONSULTATION: Acute hypoxemic respiratory failure, status post cardiopulmonary arrest. CHIEF COMPLAINT AND HISTORY OF PRESENT ILLNESS: The patient is a 44-year-old female with past medical history that is really unknown at this time, who was brought into the Emergency Room. Reportedly, they had been called out to the community for shortness of breath. The patient was unresponsive, pulseless and apneic, when they got there, the ACLS was initiated. PEA was the initial rhythm. She got 2 amps of epinephrine and defibrillation x 1, got a pulse in the ER. In the ER, she was, I believe, intubated, placed on mechanical ventilatory support, transferred up to the Intensive Care Unit. Of note, I am just status post another round of ACLS and CPR for bradycardia to asystole arrest. Her tobacco use/abuse history is unknown, but in the ER, she was described as a current every day smoker, I believe, by family. That really is as much of the history of presentation as I have. Her exposure to COVID-19 is unknown. PAST MEDICAL HISTORY: Apparently history of hypertension, diabetes and a cerebrovascular accident. PAST SURGICAL HISTORY: History of a cholecystectomy and an appendectomy. MEDICATIONS: She was on at the time I stopped by to see were reviewed, pertinent medications included the following: Cefepime 2 g IV q. 8 hours, Catapres patch 0.2 mg transdermally, Lasix 40 mg IV b.i.d., labetalol 10 mg IV q. 4 hours p.r.n. hypertension, Propofol drip was at 5 mcg per kilogram per minute, vancomycin 1.5 grams IV q. 18 hours. ALLERGIES: No known drug allergies. DIET: Obese lady, acute weight loss or gain history is unknown. FAMILY AND SOCIAL HISTORY: Apparently lives in the community, described as a current every day smoker by the records. Alcohol or illicit drug use or abuse history, unknown. Family history is otherwise unknown. REVIEW OF SYSTEMS: Unobtainable secondary the patient's medical and mental condition. PHYSICAL EXAMINATION: VITAL SIGNS: On examination at presentation here, review of the vital signs shows that she was afebrile, temperature 97.0 Fahrenheit rectally, initial pulse was 152, respiratory rate 25, blood pressure 160/114, O2 sats 100%, inspired oxygen concentration at that time was not recorded. When I stopped by to see her, O2 sats were 92%; however, this is now post-cardiac arrest on the mechanical ventilator. [facility] AC tidal volumes are 400. PEEP was 12. FiO2 was 100 and rate was 28. GENERAL: Again, middle-aged obese female, normocephalic, atraumatic, on the mechanical ventilator with mild patient-ventilator dyssynchrony sound, agonal type breathing. HEAD, EYES, EARS, NOSE, AND HEENT: Anicteric. No conjunctival erythema. Oropharynx was moist. Endotracheal tube was in place, taped around 23-24 cm at the lips. No gross jugular venous distention, no thyromegaly. NECK: Grossly, there were no palpable lymph nodes in the supraclavicular or submandibular lymph node chains. LUNGS: Auscultation of both lung sifuentes revealed bilateral rhonchi, diminished breath sounds. No active wheezing. HEART: Heart sounds 1 and 2 are heard at the time of my evaluation, regular rate and rhythm without overt rubs or murmurs. ABDOMEN: Soft, full, bowel sounds are positive. Nontender, protuberant abdomen. No palpable hepatosplenomegaly. EXTREMITIES: Without overt digital clubbing or cyanosis. No pedal edema. Pedal pulses were 2+ bilaterally. NEUROLOGIC: Pupils are equal, round, about 6 mm, sluggishly reactive if at all. Extraocular muscle movements could not be assessed. She had some spontaneous movements to all extremities prior to the cardiac arrest. SKIN: Her skin is of normal turgor without overt cellulitis or rash in the areas examined. Please see the registered nurses' and wound care nurses' notes for full description of her skin. PSYCHIATRIC: Mood and affect were flat. LABORATORY DATA: From my review as follows: Admission white cell count 28,200, hemoglobin 15.4, hematocrit 49.3, platelet count 344. No manual differential for my review. INR 1.31. D-dimer 9263. Arterial blood gas earlier showed a pH of 7.27, pCO2 of 39, pO2 of 63 on 100% on the prior mentioned vent settings. Serum sodium was 136, potassium 3.4, chloride 95, bicarbonate 12, BUN 26, creatinine 1.1, glucose 463. Lactic acid level was 11.8. AST was up at 106, ALT 75. Troponin 0.416. CRP 0.6. Procalcitonin 1.24. Urine test was negative. Large blood in the urine. Nitrites and leukocyte esterase were negative. Coronavirus initial PCR is negative. Two sets of blood cultures, no growth to date. IMAGING STUDIES: Chest x-ray shows ET tube in place, diffuse bilateral pulmonary infiltrates, right greater than left with right lower lobe predominance. Defibrillator pads are seen over the silhouette. Endotracheal tube tip is at the lower border of the clavicles. There is mild cardiomegaly. The film is rotated to the left. A CT angio of the chest was also done. I have reviewed the films. I have also reviewed the radiologist's interpretation. Very good PA contrast filling. She has a large right pleural effusion, moderate to large. She has left lower lobe consolidation. No gross filling defects consistent with large order pulmonary emboli. She also has bilateral pulmonary infiltrates involving both lungs; actually it looks more pronounced in the left upper lobe on the CT of the chest. No gross pneumothorax, no gross bony fracture. ASSESSMENT: 1. Acute hypoxemic respiratory failure, on mechanical ventilator support. 2. Acute respiratory distress syndrome. 3. Bilateral pneumonia. 4. Non-ST elevation myocardial infarction. 5. History of hypertension. 6. History of cerebrovascular accident. 7. History of diabetes. 8. Leukocytosis. 9. Hemoconcentration. 10. Elevated D-dimer. 11. Metabolic acidosis. 12. Severe sepsis with shock. 13. Acute kidney insufficiency. 14. Lactic acidosis. 15. Hyperlipidemia. PLAN: She is now status post cardiac arrest around 2. I will give her a quick volume bolus. We have taken off the clonidine patch and started her on a Levophed drip. There appears to be a significant metabolic acidosis at play here. I will hyperventilate her in the short time to correct ____ the metabolic acidosis. I will increase the tidal volumes to 550 and the set rate to 30. She received 2 amps of bicarbonate during the last code. I will be beginning a bicarbonate drip, D5W with 3 amps of bicarbonate per liter of normal saline. We will trend her lactic acid level. Continue empiric antibiotic therapy including coverage for atypical pneumonia. I will be adding Zithromax to the mix right now. We will keep an eye on her QT interval during this admission. Glycemic control will be targeted for blood glucose of 140-180 mg/dL while critically ill. Cardiology evaluation, I believe, has been requested. I will defer to them for management of that problem. Antibiotics will be deescalated based on results of clinical and microbiologic data. Ventilator-associated pneumonia bundle has been instituted. A repeat chest x-ray does not show any new cardiopulmonary process. Electrolytes are monitored and corrected as necessary. She is going to be on DVT prophylaxis as well as GI prophylaxis. I will be stopping the Lasix for now. Flu and pneumonia vaccination will be addressed per protocol. We will keep the PEEP at 12 to try and recruit alveoli. Thank you very much for the consult. We will follow along and make further recommendations as picture progresses/becomes clearer. Of note, she will remain in contact and airborne precautions and I will start empiric vitamin C therapy here on her and zinc replacement. Infectious Disease consultation has been placed. We will follow along and make further recommendations as picture progresses/becomes clearer. At this point, I have spent 35-40 minutes of critical care time without overlap excluding any procedural time that may be necessary. JOB# [id number] STACI/PAZ
[2020-03-18 18:01] VITALS: BP 151/75
--- NOTE | 2020-03-18 21:41 | Event Note ---
Date: 03/18/20 A CODE PAMELA was called. I presented to the bedside. The patient was found to be in cardiopulmonary arrest. The patient was treated in accordance with ACLS protocol. Patient was found to be in asystole without the ability to regain a perfusing rhythm. Patient's pupils were fixed and dilated. Patient was absence of breath sounds as well as cardiac function. The patient was pronounced at 1715 hrs. 65 minutes critical care time dedicated to bedside patient care and coordination of care.
--- NOTE | 2020-03-18 21:42 | Death Note ---
Note Date of : 03/18/20 Time of : 17:15 Time Pronounced: 17:15 - Preliminary Cause of (problem) (1) Cardiopulmonary arrest Preliminary cause of (2) NSTEMI (non-ST elevated myocardial infarction) Preliminary cause of (3) Pneumonia Preliminary cause of
[2020-03-18] MEDS ORDERED: HEPARIN 5,000 UNIT/1 ML VIAL SUB-Q SCH (22:00)
[2020-03-18] MEDS ORDERED: FAMOTIDINE 20 MG/2 ML INJ IV SCH (22:00)
[2020-03-18] MEDS ORDERED: methylPREDNISolone Sod Succinate 125 MG/2 ML INJ IV SCH (22:00)
--- NOTE | 2020-03-19 08:11 | Discharge Summary ---
Providers - Providers Date of Admission: 03/18/20 07:40 Date of discharge: 03/18/20 Attending physician: JEANIE SIMONS 03/18/20 06:05 Consult to Physician [CONS] Stat Comment: DR CHAPIN JUARES W/DR TADEO @0740 Consulting Provider: JUVE MACHADO Physician Instructions: Reason For Exam: COVID PUI 03/18/20 07:44 Consult to Physician [CONS] Stat Comment: [facility] OFC TO ADV OF CONSULT @1217 Consulting Provider: ROBYN GARCIA Physician Instructions: Reason For Exam: critical care 03/18/20 07:49 Consult to Physician [CONS] Stat Comment: [facility] OFC @0727 TO ADV OF CONSULT Consulting Provider: JUSTICE BETANCUR Physician Instructions: Reason For Exam: cardiac arrest, NSTEMI 03/18/20 10:26 Consult to Dietitian/Nutrition [CONS] Routine Physician Instructions: Reason For Exam: DKA Reason for Consult: Nutrition Recommendations Reason for Consult: Write/Manage Tube Feeding 03/18/20 14:18 Consult to Dietitian/Nutrition [CONS] Routine Physician Instructions: Reason For Exam: Reason for Consult: Evaluate nutritional intake 03/18/20 14:22 Consult to Dietitian/Nutrition [CONS] Routine Physician Instructions: Reason For Exam: Reason for Consult: Write/Manage Tube Feeding 03/18/20 15:25 Consult to Physician [CONS] Routine Comment: Consulting Provider: JASMIN DAMIAN Physician Instructions: Reason For Exam: anxic brain injury 03/18/20 15:59 Consult to PICC Line RN [CONS] Urgent Reason For Exam: picc Type Line:: PICC Primary care physician: WEB SIZER Hospitalization Condition: Undetermined Disposition: DC-20 Exam - Constitutional Vitals: Temp Pulse Resp BP Pulse Ox 99.2 F 67 0 L 151/75 100 03/18/20 12:32 03/18/20 17:00 03/18/20 17:30 03/18/20 17:11 03/18/20 17:00 Plan Follow up with: PRIMARY CARE, [Primary Care Provider] - 3-5 Days
--- NOTE | 2020-03-19 08:14 | Death Summary ---
Summary - Providers Date of service: 03/18/20 Consults: 03/18/20 06:05 Consult to Physician [CONS] Stat Comment: DR CHAPIN JUARES W/DR TADEO @0740 Consulting Provider: JUVE MACHADO Physician Instructions: Reason For Exam: COVID PUI 03/18/20 07:44 Consult to Physician [CONS] Stat Comment: [facility] OFC TO ADV OF CONSULT @1217 Consulting Provider: ROBYN GARCIA Physician Instructions: Reason For Exam: critical care 03/18/20 07:49 Consult to Physician [CONS] Stat Comment: [facility] OFC @0727 TO ADV OF CONSULT Consulting Provider: JUSTICE BETANCUR Physician Instructions: Reason For Exam: cardiac arrest, NSTEMI 03/18/20 10:26 Consult to Dietitian/Nutrition [CONS] Routine Physician Instructions: Reason For Exam: DKA Reason for Consult: Nutrition Recommendations Reason for Consult: Write/Manage Tube Feeding 03/18/20 14:18 Consult to Dietitian/Nutrition [CONS] Routine Physician Instructions: Reason For Exam: Reason for Consult: Evaluate nutritional intake 03/18/20 14:22 Consult to Dietitian/Nutrition [CONS] Routine Physician Instructions: Reason For Exam: Reason for Consult: Write/Manage Tube Feeding 03/18/20 15:25 Consult to Physician [CONS] Routine Comment: Consulting Provider: JASMIN DAMIAN Physician Instructions: Reason For Exam: anxic brain injury 03/18/20 15:59 Consult to PICC Line RN [CONS] Urgent Reason For Exam: picc Type Line:: PICC Attending: JEANIE SIMONS - summary Date of admission: 03/18/20 07:40 Date of : 03/18/20 Significant findings: 44-year-old female, with h/o CAD recent cath 2 weeks ago at , CHF unknown EF, HTN, HLD, DM, hypothyroidism presented to the ED via EMS following a cardiac arrest at home. Per EMS patient was unresponsive, pulseless, and apneic. ACLS was initiated, Patient was PEA on the monitor initially. Patient was given a total of epinephrine x2 and defibrillation x1. Regained pulse just prior to ED arrival. Patient placed on vent in the emergency room, ECG currently is mild sinus tachycardia with nonspecific ST abnormalities associated with the incomplete left bundle, chest x-ray was abnormal with cardiomegaly, CTA chest with bilateral interstitial infiltrates right greater than left. The WBC was 28,000, troponin was 0.4, glucose 463, . She was placed on insulin drip, started on empiric abx, pressors and admitted to ICU for further Mx. Following admission she had more than 1 episodes of cardiac arrest followed by successful ACLS. Family was updated. Patient was placed on multiple pressors but unable to maintain a sustainable blood pressure. Her Covid 19 test was negative. Patient again coded around 1700 hrs on the same day of her admission. She was found to be in asystole without the ability to regain a perfusing rhythm. Patient was treated in accordance with ACLS protocol. Her pupils were fixed and dilated without any sign of breath sound or heart sound. Patient was pronoun pako at [address] Zimmer. Cause of : cardiorespiratory arrest due to severe sepsis with possible PNA and UTI, severe shock, Metabolic acidosis, heart failure.
== END 2020-03-18 21:30 | DRG 871 ==
LOC: ED 03:15 → CC1 07:40
PROVIDERS: ADMIT Internal Medicine; ATTEND Internal Medicine
PROC: 4A033R1 Measurement of Arterial Saturation, Peripheral, Percutaneous Approach (ICD-10-PCS; principal; 2020-03-18)
PROC: 5A1935Z Respiratory Ventilation, Less than 24 Consecutive Hours (ICD-10-PCS; 2020-03-18)
PROC: 0BH17EZ Insertion of Endotracheal Airway into Trachea, Via Natural or Artificial Opening (ICD-10-PCS; 2020-03-18)
DX: A41.9 Sepsis, unspecified organism (principal); I21.4 Non-ST elevation (NSTEMI) myocardial infarction; J18.9 Pneumonia, unspecified organism; J96.00 Acute respiratory failure, unspecified whether with hypoxia or hypercapnia; E11.10 Type 2 diabetes mellitus with ketoacidosis without coma; G93.41 Metabolic encephalopathy; R65.21 Severe sepsis with septic shock; I50.9 Heart failure, unspecified; I46.9 Cardiac arrest, cause unspecified; Z20.828 Contact with and (suspected) exposure to other viral communicable diseases; I11.0 Hypertensive heart disease with heart failure; E03.9 Hypothyroidism, unspecified; F17.200 Nicotine dependence, unspecified, uncomplicated; E78.5 Hyperlipidemia, unspecified; I25.10 Atherosclerotic heart disease of native coronary artery without angina pectoris; Z79.899 Other long term (current) drug therapy; Z95.5 Presence of coronary angioplasty implant and graft; Z90.49 Acquired absence of other specified parts of digestive tract
CPT/HCPCS: 36415; 36600; 70450; 71045; 71275; 80048; 80061; 80076; 81001; 82140; 82728; 82803; 82947; 83615; 83735; 83880; 84100; 84145; 84484; 84703; 85007; 85025; 85379; 85610; 85730; 86140; 87040; 87086; 87205; 92950; 93005; 94002; G0378; J0171; J0456; J0692; J1650; J1815; J1940; J2704; J3370; J7030; J7040; J7050; J7070; Q9967; U0003-CS